=== PATIENT | female | born 1990 | race African-American/Black ===

== ENCOUNTER 2017-06-16 22:20 | Emergency (ER) | payer SELFPAY ==
[~2017-06-16] VITALS: Ht 162.6 cm; Wt 59.0 kg
[2017-06-16 22:35] VITALS: Ht 162.6 cm; Wt 59.0 kg
--- NOTE | 2017-06-17 00:10 | ERD ---
ER Documentation Chief Complaint Chief Complaint felt dizzy today HPI 27-year-old female, presents to the emergency department complaining of mild dizziness today, the dizziness is described as a spinning sensation. Denies headaches, nausea, vomiting, no weakness, numbness, tingling. ROS A 12-point review of systems was performed and negative other than presented in the history of present illness. SYSTEMIC symptoms: no fever, chills, no night sweats, no weight loss EYE symptoms: No blurred vision, no eye discharge OTOLARYNGEAL symptoms: No hearing loss. No ear pain, no sore throat CARDIOVASCULAR symptoms: No chest pain or discomfort, no palpitations. PULMONARY symptoms: No dyspnea, no cough, no wheezing. GASTROINTESTINAL symptoms: No abdominal pain, no nausea, no vomiting, no diarrhea MUSCULOSKELETAL symptoms: No arthralgias, no muscle aches. NEUROLOGY symptoms: No confusion, no syncope, no numbness or tingling. SKIN: No rashes Allergies Allergies: Coded Allergies: peanut (Verified Allergy, Unknown, 06/16/17) Uncoded Allergies: CAT (Allergy, Unknown, 06/16/17) PMhx/Soc Medical and Surgical Hx: pt denies Surgical Hx Hx Neurological Disorder: No Hx Respiratory Disorders: No Hx Cardiac Disorders: No Hx Psychiatric Problems: No Hx Miscellaneous Medical Probl: Yes (PT REPORTS DM ) Hx Alcohol Use: Yes Hx Substance Use: Yes (MARIJUANA) Hx Tobacco Use: No Smoking Status: Never smoker Physical Exam Vitals Vital Signs Date Time Temp Pulse Resp B/P Pulse Ox O2 Delivery O2 Flow Rate FiO2 06/16/17 22:35 97.7 90 20 155/95 100 Physical Exam Patient is in no acute distress, vital signs stable. Alert and fully oriented. EYES: PERRLA, EOMI, Sclera and conjunctiva appear normal. EARS: Canals clear, tympanic membranes WNL THROAT: Normal oropharynx. NECK: Supple, No lymphadenopathy. Full ROM without pain or tenderness. HEART: RRR, no rubs, murmurs, clicks or gallops. LUNGS: Clear to auscultation. ABDOMEN: Soft, non-tender without masses or hepatosplenomegaly. EXTREMITIES: No edema bilaterally. BACK: Full ROM, no deformity, normal back exam NEURO: Cranial nerves grossly intact, no motor or sensory deficit Procedures/MDM 27-year-old female, presents complaining of one episode of mild dizziness today , currently the patient refers feeling much better and is asking to go home. Vital signs stable, Physical exam unremarkable. Differential diagnosis include but not limited to: Mnire's disease, vestibular neuronitis, migraine, vertigo, side effects of the medications, dehydration. Low suspicion for meningitis, [employer] tumor, stroke. Physical examination and clinical presentation consistent most likely with positional vertigo. During the ED course the patient remained stable, no new complaints. Results and clinical impression discussed with patient who agrees with management. The patient is stable to be discharged home. The patient was instructed to follow up with the primary care provider in the next 48h. If symptoms persist, worsen or new symptoms develop, then patient should return to the ED immediately. Instructions explained and given directly by me to the patient with acknowledgment and demonstrated understanding. Disclaimer: Inadvertent spelling and grammatical errors are likely due to EHR/ dictation software use and do not reflect on the overall quality of patient care. Also, please note that the electronic time recorded on this note does not necessarily reflect the actual time of the patient encounter. Departure Diagnosis: Primary Impression: Positional vertigo Condition: Stable Additional Instructions: Call your primary care doctor TOMORROW for an appointment during the next 1-2 days. See the doctor sooner or return here if your condition worsens before your appointment time. Thank you very much for allowing us to participate in your care. Your health and safety is our top priority at [facility]. Have prescriptions filled and follow precisely the directions on the label. Follow-up with primary care provider during the next 4 days and bring all the information and medications prescribed. If illness has not improved in 2 days, then make an appointment with primary care provider. If the provider is unavailable, return to the Emergency Department immediately. CASANDRA BOLES MD Jun 17, 2017 00:10
== END 2017-06-17 00:25 | disposition home or self-care (01) ==
LOC: FTE 22:20
DX: H81.10 Benign paroxysmal vertigo, unspecified ear (principal); E11.9 Type 2 diabetes mellitus without complications; Z91.010 Allergy to peanuts
CPT/HCPCS: 99282